=== PATIENT | male | born 1965 | race Caucasian/White ===

== ENCOUNTER 2018-03-02 21:29 | Inpatient (IN) | payer BC ==
[2018-03-02 21:38] VITALS: BMI 30.1
[2018-03-02] MEDS ORDERED: ONDANSETRON 4 MG/2 ML VIAL IVPB ONE (21:49)
[2018-03-02] MEDS ORDERED: SODIUM CHLORIDE 1,000 ML IV STA (21:49)
[2018-03-02] MEDS ORDERED: morphine CARPU-JECT 2 MG/1 ML DISP.SYRIN IVPUSH ONE (21:49)
[2018-03-02] MEDS ORDERED: MORPHINE SULFATE 2 MG/ML VIAL ONE (21:56)
[2018-03-02] MEDS ORDERED: ONDANSETRON 4 MG/2 ML VIAL ONE (21:57)
[2018-03-02 22:37] LABS: BASO % 0.3 % (0-2.0); EOS % 0.4 % (0-4.5); HEMATOCRIT 43.4 % (35.4-49); HEMOGLOBIN 14.9 GM/dL (11.7-16.9); LYMPH % 5.4 % (8-40); MCH 28.6 pg (25.7-33.7); MCHC 34.4 g/dl (32.0-35.9); MEAN CELL VOLUME 83.2 fl (80-96); MEAN PLT VOLUME 8.8 fl (7.5-11.1); MONO % 3.4 % (3.8-10.2); NEUT % 90.5 % (42.8-82.8); PLATELET COUNT 287 K/MM3 (134-434); RBC 5.22 M/mm3 (4.00-5.60); WHITE BLOOD COUNT 19.5 K/mm3 (4.0-10.0)
[2018-03-02] MEDS ORDERED: KETOROLAC TROMETHAMINE 30 MG/1 ML VIAL IVPUSH ONE (22:40)
--- NOTE | 2018-03-02 22:44 | PDOC ---
Attending Attestation - HPI HPI: 03/02/18 23:00 Patient is a 52 year old male with a significant past medical history of HLD, who presents to the ED with complaints of lower abdominal pain that began x2 days ago. Patient reports abdominal pain began 2 days ago but did not come in for evaluation because he attributed to gas. He reports beginning to experience left flank pain that he states is a 10/10 , that he states began to radiate to his left lower abdomen and right flank, prompting him to come into the ED for further evaluation. He reports experiencing associated symptom of intermittent vomiting, but currently states he is not nauseous. Patient states he believes the pain to be caused by a kidney stone. Denies chest pain, Sob. Denies fevers, chills. Denies contact with sick individuals, out of state travelling. Denies dysuria, hematuria. Denies diarrhea , constipation. Denies any other symptoms. Allergies: None Social history: No smoking. No alcohol. No illicit drugs. Surgical history: None PMD:Dr. Pascual <Mohsen Retana - Last Filed: 03/02/18 23:00> - Resident Resident Name: Danisha Garcia - ED Attending Attestation I have performed the following: I have examined & evaluated the patient, The case was reviewed & discussed with the resident, I agree w/resident's findings & plan, Exceptions are as noted - Physicial Exam PE: GENERAL: Awake, alert, and fully oriented. Appears uncomfortable. HEAD: No signs of trauma EYES: PERRLA, EOMI, sclera anicteric, conjunctiva clear ENT: Auricles normal inspection, hearing grossly normal, nares patent, oropharynx clear without exudates. Dry mucosa NECK: Normal ROM, supple, no lymphadenopathy, JVD, or masses LUNGS: Breath sounds equal, clear to auscultation bilaterally. No wheezes, and no crackles HEART: Regular rate and rhythm, normal S1 and S2, no murmurs, rubs or gallops ABDOMEN: Soft, nontender, normoactive bowel sounds. No guarding, no rebound. No masses EXTREMITIES: Normal range of motion, no edema. No clubbing or cyanosis. No cords, erythema, or tenderness NEUROLOGICAL: Cranial nerves II through XII grossly intact. Normal speech, normal gait SKIN: Warm, Dry, normal turgor, no rashes or lesions noted. - Medical Decision Making Suspected kidney stone, will obtain labs, urine, and spiral CT. 03/03/18 01:42 Pt with elevated lipase, significant leukocytosis in addition to the finding of kidney stone. Will plan for admission. <Adri Parker - Last Filed: 03/03/18 01:42>
--- NOTE | 2018-03-02 22:47 | PDOC ---
History of Present Illness - General Chief Complaint: Pain, Acute Stated Complaint: PAIN, ACUTE Time Seen by Provider: 03/02/18 21:39 History Source: Patient Exam Limitations: No Limitations - History of Present Illness Initial Comments: 03/02/18 22:42 Pt is a 52yo m with PMH of HLD presenting to ED because "I think I have a kidney stone". Pt said he had been having some lower abdominal pain for the past couple of days and attributed it to "gas". Today, 3-4 hours ago pt felt a sharp pain in his L flank that would radiate to his lower abdomen and go across to the R side as well. He rated the pain 10/10, intermittent and associated with N and vomiting. He also was diaphoretic during these episodes. He denies fever, chills, dysuria, hematuria, shortness of breath, chest pain, diarrhea, constipation. Pt has never had a kidney stone in the past. PCP: Dr. Pascual PMH: see hpi PSH: none Meds: statin Social: denies tobacco, alcohol, illicit drug use Allergies: nkda Past History - Past Medical History Allergies/Adverse Reactions: Allergies Allergy/AdvReac Type Severity Reaction Status Date / Time No Known Allergies Allergy Verified 03/02/18 21:37 Home Medications: Ambulatory Orders Atorvastatin Ca [Lipitor] 20 mg PO HS 03/02/18 COPD: No Hypercholesterolemia: Yes - Suicide/Smoking/Psychosocial Hx Smoking History: Never smoked Review of Systems - Review of Systems Constitutional: Yes: See HPI. No: Chills, Fever, Loss of Appetite, Weakness HEENTM: No: Recent change in vision, Double Vision Respiratory: No: Cough, Shortness of Breath Cardiac (ROS): No: Chest Pain, Lightheadedness, Palpitations ABD/GI: Yes: Nausea, Vomiting, Other (lower abdominal pain going from L to R). No: Blood Streaked Bowels, Constipated, Diarrhea : Yes: See HPI, Flank Pain (L flank pain). No: Burning, Dysuria, Hematuria Musculoskeletal: No: Back Pain, Joint Pain, Muscle Pain Neurological: No: Headache, Numbness, Paresthesia, Tingling, Weakness *Physical Exam - Vital Signs Last Vital Signs Temp Pulse Resp BP Pulse Ox 98.6 F 95 H 24 130/100 99 03/02/18 21:30 03/02/18 21:30 03/02/18 21:30 03/02/18 21:30 03/02/18 22:38 - Physical Exam Comments: 03/02/18 22:48 Pt was sitting in bed, looked very uncomfortable, writing in pain occasionally and clenching teeth General Appearance: Yes: Nourished, Appropriately Dressed, Severe Distress HEENT: positive: EOMI, LAILA, Hearing Grossly Normal. negative: Scleral Icterus (R), Scleral Icterus (L), Pharyngeal Erythema Neck: positive: Trachea midline, Supple. negative: Lymphadenopathy (R), Lymphadenopathy (L) Respiratory/Chest: positive: Lungs Clear, Normal Breath Sounds. negative: Crackles, Rales, Wheezing Cardiovascular: positive: Regular Rhythm, Regular Rate, S1, S2. negative: JVD, Murmur Vascular Pulses: Dorsalis-Pedis (R): 2+, Doralis-Pedis (L): 2+ Gastrointestinal/Abdominal: positive: Normal Bowel Sounds. negative: Distended , Guarding, Rebound, Tenderness, Hernia Musculoskeletal: negative: CVA Tenderness, CVA Tenderness (R), CVA Tenderness (L ), Muscle Spasm Extremity: positive: Normal Capillary Refill, Normal Inspection Integumentary: positive: Normal Color, Dry, Warm Neurologic: positive: informatics manager II-XII NML intact, Fully Oriented, Alert, Normal Mood/ Affect, Normal Response, Motor Strength 5/5 ED Treatment Course - LABORATORY CBC & Chemistry Diagram: 03/02/18 22:10 03/02/18 22:10 - ADDITIONAL ORDERS Additional order review: 03/02/18 22:10 RBC 5.22 MCV 83.2 MCHC 34.4 RDW 14.0 MPV 8.8 Neutrophils % 90.5 H Lymphocytes % 5.4 L Monocytes % 3.4 L Eosinophils % 0.4 Basophils % 0.3 - RADIOLOGY Radiology Studies Ordered: Category Date Time Status SPIRAL- RENAL-STONE CT [CT] Stat CT Scan 03/02/18 21:50 Ordered - Medications Given in the ED: ED Medications Discontinued Medications Generic Name Dose Route Start Last Admin Trade Name Freq PRN Reason Stop Dose Admin Ketorolac Tromethamine 30 mg 03/02/18 22:40 03/02/18 22:41 Toradol Injection - IVPUSH 03/02/18 22:41 30 mg ONCE ONE Administration Morphine Sulfate 2 mg 03/02/18 21:49 03/02/18 22:00 Morphine Injection - IVPUSH 03/02/18 21:50 2 mg ONCE ONE Administration Ondansetron HCl 4 mg 03/02/18 21:49 03/02/18 22:00 Zofran Injection IVPB 03/02/18 21:50 4 mg ONCE ONE Administration Medical Decision Making - Medical Decision Making 03/02/18 22:49 Pt is a 52yo m with PMH of HLD presenting to ED because "I think I have a kidney stone". DDx: nephrolithiasis, pyelonephritis, colitis, pancreatitis, cholecystits, Clinical gestalt highly suspicious for nephrolithiasis. CBC, CMP, Lipase, spiral CT ordered. Pt given Zofran, morphine, toradol and NS. Will await CT results and UA. Lipase: 898 WBC: 19.[address]: showed 3.3mm distal left ureteral stone at the left ureterovesicular junction which is obstructing and causing mild left hydronephrosis/hydroureter. No R stone or obstruction. No bowel obstruction or inflammation. NOrmal appendix. NOrmal pancreas. No obvious gallbladder abnormalities. Normal spleen UA negative. No source for elevated WBC or Lipase. Will admit pt under observation to trend enzymes and WBC. 03/03/18 03:[address] Ford, advised to order blood cultures and give dose of rocephin. make pt npo Will admit pt under Dr. Ramirez. Ordered triglycerides, lactate and pt/aptt. 03/03/18 03:38 *DC/Admit/Observation/Transfer Diagnosis at time of Disposition: Ureteral stone - Discharge Dispostion Decision to Admit order: Yes - Referrals Referrals: Ankur Pascual [Primary Care Provider] - - Patient Instructions - Post Discharge Activity
[2018-03-02] MEDS ORDERED: KETOROLAC TROMETHAMINE 30 MG/1 ML VIAL ONE (23:03)
[2018-03-02 23:12] LABS: ALBUMIN 4.4 g/dl (3.4-5.0); ANION GAP 10 MMOL/L (8-16); BLOOD UREA NITROGEN 16 mg/dL (7-18); CALCIUM 8.8 mg/dL (8.5-10.1); CHLORIDE 103 mmol/L (98-107); CO2 29 mmol/L (21-32); GLUCOSE,RANDOM 143 mg/dL (74-106); POTASSIUM 4.2 mmol/L (3.5-5.1); SODIUM 142 mmol/L (136-145)
[2018-03-02 23:15] LABS: ALK PHOS 66 U/L (45-117); BILIRUBIN,TOTAL 0.4 mg/dL (0.2-1.0); CREATININE 1.5 mg/dL (0.7-1.3); LIPASE 898 U/L (73-393); SGOT/AST 24 U/L (15-37); SGPT/ALT 36 U/L (12-78); TOT PROT 7.5 g/dl (6.4-8.2)
[2018-03-03 02:22] LABS: URINE APPEARANCE CLEAR; URINE BILIRUBIN NEGATIVE (<2.0 mg/dL); URINE COLOR LTYELLOW; URINE GLUCOSE (UA) NEGATIVE (NEGATIVE); URINE KETONE NEGATIVE (NEGATIVE); URINE LEUK ESTERASE NEGATIVE (NEGATIVE); URINE NITRITE NEGATIVE (NEGATIVE); URINE PROTEIN NEGATIVE (NEGATIVE); URINE UROBILINOGEN NEGATIVE mg/dL (0.2-1.0)
[2018-03-03 02:27] LABS: URINE MUCUS RARE
[2018-03-03] MEDS ORDERED: CEFTRIAXONE 1 GM in DEXTROSE 5%-WATER - 100 ML IVPB ONE (03:08)
[2018-03-03] MEDS ORDERED: KETOROLAC TROMETHAMINE 15 MG/ML VIAL IVPUSH PRN (03:32)
[2018-03-03] MEDS ORDERED: CEFTRIAXONE 1 GM/50 ML BAG ONE (03:34)
--- NOTE | 2018-03-03 03:35 | HP ---
CHIEF COMPLAINT: back pain radiating to the groin PCP: Dov Davis HISTORY OF PRESENT ILLNESS: 52 yr old man with hx of HLD, presents with squeezing continous back pain radiating to the groin, worse on the left side, starting around 530pm while at work. Around 7pm it became intolerable /10 with associated nausea and vomiting. No hx of previous kidney stones, or pancreatitis. denies fevers, dysuria, chest pain, sob, constipation. ER course was notable for: (1)urology consult (2) (3) Recent Travel: none PAST MEDICAL HISTORY: HLD, hx of hypertriglycerides - stops his statin and the trigs decr and then he goes back on his statin PAST SURGICAL HISTORY: denies Social History: Smoking: never Alcohol:never Drugs: never Family History: father at age 58 due to lung cancer(chronic smoker), mother in jul 2017 due to complications of COPD(was a chronic smoker) Allergies No Known Allergies Allergy (Verified 03/02/18 21:37) HOME MEDICATIONS: Home Medications Medication Instructions Recorded Atorvastatin Ca [Lipitor] 20 mg PO HS 03/02/18 REVIEW OF SYSTEMS CONSTITUTIONAL: Absent: fever, chills, diaphoresis, generalized weakness, malaise, loss of appetite, weight change HEENT: Absent: rhinorrhea, nasal congestion, throat pain, throat swelling, difficulty swallowing, mouth swelling, ear pain, eye pain, visual changes CARDIOVASCULAR: Absent: chest pain, syncope, palpitations, irregular heart rate, lightheadedness , peripheral edema RESPIRATORY: Absent: cough, shortness of breath, dyspnea with exertion, orthopnea, wheezing, stridor, hemoptysis GASTROINTESTINAL: Absent: abdominal pain, abdominal distension, nausea, vomiting, diarrhea, constipation, melena, hematochezia GENITOURINARY: Absent: dysuria, frequency, urgency, hesitancy, hematuria, flank pain, genital pain MUSCULOSKELETAL: Absent: myalgia, arthralgia, joint swelling, back pain, neck pain SKIN: Absent: rash, itching, pallor HEMATOLOGIC/IMMUNOLOGIC: Absent: easy bleeding, easy bruising, lymphadenopathy, frequent infections ENDOCRINE: Absent: unexplained weight gain, unexplained weight loss, heat intolerance, cold intolerance NEUROLOGIC: Absent: headache, focal weakness or paresthesias, dizziness, unsteady gait, seizure, mental status changes, bladder or bowel incontinence PSYCHIATRIC: Absent: anxiety, depression, suicidal or homicidal ideation, hallucinations. PHYSICAL EXAMINATION Vital Signs - 24 hr 03/02/18 03/02/18 03/03/18 21:30 22:38 02:37 Temperature 98.6 F 99.1 F Pulse Rate 95 H Pulse Rate [ 92 H Apical] Respiratory 24 19 Rate Blood Pressure 130/100 Blood Pressure 134/87 [Left Arm] O2 Sat by Pulse 99 99 Oximetry (%) GENERAL: Awake, alert, and fully oriented, in no acute distress. HEAD: Normal with no signs of trauma. EYES: Pupils equal, round and reactive to light, extraocular movements intact, sclera anicteric, conjunctiva clear. No lid lag. EARS, NOSE, THROAT: Ears normal, nares patent, oropharynx clear without exudates. Moist mucous membranes. NECK: Normal range of motion, supple without lymphadenopathy, JVD, or masses. LUNGS: Breath sounds equal, clear to auscultation bilaterally. No wheezes, and no crackles. No accessory muscle use. HEART: Regular rate and rhythm, normal S1 and S2 without murmur, rub or gallop. ABDOMEN: Soft, nontender, not distended, normoactive bowel sounds, no guarding, no rebound, no masses. No hepatomegaly or splenomegaly. MUSCULOSKELETAL: Normal range of motion at all joints. No bony deformities or tenderness. No CVA tenderness. UPPER EXTREMITIES: 2+ radial pulses, warm, well-perfused. No cyanosis. No clubbing. No peripheral edema. LOWER EXTREMITIES: 2+ DP pulses, warm, well-perfused. No calf tenderness. No peripheral edema. NEUROLOGICAL: Cranial nerves II-XII intact. Normal speech. PSYCHIATRIC: Cooperative. Good eye contact. Appropriate mood and affect. SKIN: Warm, dry, normal turgor, no rashes or lesions noted, normal capillary refill. Laboratory Results - last 24 hr 03/02/18 03/02/18 03/02/18 22:10 22:10 22:10 WBC 19.5 H RBC 5.22 Hgb 14.9 Hct 43.4 MCV 83.2 MCH 28.6 MCHC 34.4 RDW 14.0 Plt Count 287 MPV 8.8 Absolute Neuts (auto) 17.6 H Neutrophils % 90.5 H Lymphocytes % 5.4 L Monocytes % 3.4 L Eosinophils % 0.4 Basophils % 0.3 Nucleated RBC % 0 Sodium 142 Potassium 4.2 Chloride 103 Carbon Dioxide 29 Anion Gap 10 BUN 16 Creatinine 1.5 H Creat Clearance w eGFR 49.34 Random Glucose 143 H Calcium 8.8 Total Bilirubin 0.4 AST 24 ALT 36 Alkaline Phosphatase 66 Troponin I < 0.02 Total Protein 7.5 Albumin 4.4 Lipase 898 H Urine Color Urine Appearance Urine pH Ur Specific Rosman Urine Protein Urine Glucose (UA) Urine Ketones Urine Blood Urine Nitrite Urine Bilirubin Urine Urobilinogen Ur Leukocyte Esterase Urine WBC (Auto) Urine RBC (Auto) Urine Mucus 03/03/18 01:57 WBC RBC Hgb Hct MCV MCH MCHC RDW Plt Count MPV Absolute Neuts (auto) Neutrophils % Lymphocytes % Monocytes % Eosinophils % Basophils % Nucleated RBC % Sodium Potassium Chloride Carbon Dioxide Anion Gap BUN Creatinine Creat Clearance w eGFR Random Glucose Calcium Total Bilirubin AST ALT Alkaline Phosphatase Troponin I Total Protein Albumin Lipase Urine Color Ltyellow Urine Appearance Clear Urine pH 6.0 Ur Specific Rosman 1.011 Urine Protein Negative Urine Glucose (UA) Negative Urine Ketones Negative Urine Blood 3+ H Urine Nitrite Negative Urine Bilirubin Negative Urine Urobilinogen Negative Ur Leukocyte Esterase Negative Urine WBC (Auto) 1 Urine RBC (Auto) 23 Urine Mucus Rare ASSESSMENT/PLAN: 52 yr old man with cva tenderness admitted for obstructing stone. #nephrolithiasis/ MENDOZA - flomax 0.4mg po - urology consulted, dr. Cardoza to evaluate in the pt in the AM, started on rocephin - IVF NS @125cc/hr - pain control with toradol - repeat labs in the AM - will need further nephrology evaluation for renal stone analysis and elevated cr as outpatient #elevated lipase - unclear etiology, pt does not c/o of abdominal pain, no radiographic findings on prelim report of pancreatitis - await final report - repeat lipase to trend if any symptoms develop, if stable during inpatient, f/ u with pcp to discuss further investigation #Diet: NPO pending urology evaluation #DVT: heparin TID Visit type - Emergency Visit Emergency Visit: Yes ED Registration Date: 03/03/18 Care time: The patient presented to the Emergency Department on the above date and was hospitalized for further evaluation of their emergent condition. - New Patient This patient is new to me today: Yes Date on this admission: 03/03/18 - Critical Care Critical Care patient: No Hospitalist Screening - Colonoscopy Questionnaire Colonoscopy Questionnaire: Colonoscopy Questionnaire - Patient: 50 - 75 years old and never had a screening colonoscopy: Yes History of colon or rectal polyps, or CA: No History of IBD, Crohn's disease or UC: No History of abdominal radiation therapy as a child: No - Relative: 1 with colon or rectal CA, or polyps at age 60 or younger: No Colon or rectal CA diagnosed at age 45 or younger: No Multiple relatives with colon or rectal CA: No - Outcome: Screening Result: Positive Screen
[2018-03-03] MEDS ORDERED: SODIUM CHLORIDE 1,000 ML IV SCH (03:45)
[2018-03-03 03:58] LABS: INR 1.03 (0.83-1.09); PROTHROMBIN TIME (PATIENT) 11.6 SEC (9.7-13.0)
[2018-03-03 04:00] LABS: ACTIVATED PTT 27.2 SECONDS (25.2-36.5)
--- NOTE | 2018-03-03 04:55 | PN ---
Teaching Attending Note Name of Resident: Leann Lee ATTENDING PHYSICIAN STATEMENT I saw and evaluated the patient. I reviewed the resident's note and discussed the case with the resident. I agree with the resident's findings and plan as documented. SUBJECTIVE: Patient is a 52 year old man with a significant past medical history of HLD, who presents to the ER with complaints of lower abdominal pain that began x2 days ago. Patient reports abdominal pain began 2 days ago but did not come in for evaluation because he attributed to gas. He reports beginning to experience left flank pain that he states is a 10/10 , that he states began to radiate to his left lower abdomen and right flank, prompting him to come into the ED for further evaluation. He reports experiencing associated symptom of intermittent vomiting, but currently states he is not nauseous. Patient states he believes the pain to be caused by a kidney stone. OBJECTIVE: Alert Vital Signs Period Temp Pulse Resp BP Sys/Hyatt Pulse Ox Last 24 Hr 98.6 F-99.1 F 92-95 19-24 130-134/87-100 99-99 HEENT: No Jaundice, eye redness or discharge, PERRLA, EOMI. Normocephalic, atraumatic. External ears are normal and hearing is grossly intact. No nasal discharge. Neck: Supple, nontender. No palpable adenopathy or thyromegaly. No JVD Chest: Good effort. Clear to auscultation and percussion. Heart: Regular. No S3, rub or murmur Abdomen: Not distended, soft, LUQ tenderness and no HSM. No rebound or guarding. Normoactive bowel sounds. Ext: Peripheral pulses intact. No leg edema. Skin: Warm and dry. No petechiae, rash or ecchymosis. Neuro: Alert. Oriented x3. CN 2-12 grossly intact. Sensation grossly intact in all four extremities and DTR are symmetric. Current Medications Generic Name Dose Route Start Last Admin Trade Name Freq PRN Reason Stop Dose Admin Heparin Sodium (Porcine) 5,000 unit 03/03/18 06:00 Heparin - SQ TID [facility] Sodium Chloride 1,000 mls @ 125 mls/hr 03/03/18 03:45 03/03/18 04:00 Normal Saline - IV 125 mls/hr ASDIR DEVAN Administration Ketorolac Tromethamine 15 mg 03/03/18 03:32 Toradol Injection - IVPUSH Q6H PRN PAIN LEVEL 7 - 10 Home Medications Medication Instructions Recorded Atorvastatin Ca [Lipitor] 20 mg PO HS 03/02/18 Abnormal Lab Results 03/02/18 03/02/18 03/02/18 22:10 22:10 22:10 WBC 19.5 H Absolute Neuts (auto) 17.6 H Neutrophils % 90.5 H Lymphocytes % 5.4 L Monocytes % 3.4 L Creatinine 1.5 H Random Glucose 143 H Triglycerides Lipase 898 H Urine Blood 03/03/18 03/03/18 01:57 03:30 WBC Absolute Neuts (auto) Neutrophils % Lymphocytes % Monocytes % Creatinine Random Glucose Triglycerides 346 H Lipase Urine Blood 3+ H ASSESSMENT AND PLAN: 1. Kidney Stone Disease - Has a left obstructing kidney stone with hydronephrosis. Will treat with IV fluids, toradol and flomax. Will be evaluated by Urology for possible stenting. Elevated lipase will be monitored and high TG will be treated with fenofibrate. No evidence of pancreatitis. Refer to nephrology to search for risk factor for stone disease. 2. MENDOZA - Possibly due to volume depletion from vomiting and poor intake. Hydrate and avoid nephrotoxic agents such as NSAIDS, aminoglycosides, contrast dyes and certain Alternative medicine products. 3. DVT prophylaxis - Heparin 5000u sq tid. 4. Advance directives - Full code
[2018-03-03] MEDS ORDERED: HEPARIN NA (PORCINE) 5,000 UNITS/ML 1ML VIAL ONE (06:32)
[2018-03-03] MEDS: HEPARIN NA (PORCINE) 5,000 UNITS/ML 1ML VIAL SQ SCH ×2 (06:41→21:28)
[2018-03-03] MEDS ORDERED: TAMSULOSIN HCL 0.4 MG CAP.ER.24H (FP) PO SCH (08:30)
[2018-03-03] MEDS ORDERED: MORPHINE SULFATE 2 MG/ML VIAL IVPUSH PRN (09:29)
[2018-03-03] MEDS ORDERED: MORPHINE SULFATE 2 MG/ML VIAL ONE (10:00)
[2018-03-03 11:12] LABS: BASO % 0.3 % (0-2.0); EOS % 1.2 % (0-4.5); HEMATOCRIT 43.1 % (35.4-49); HEMOGLOBIN 14.5 GM/dL (11.7-16.9); LYMPH % 9.6 % (8-40); MCH 28.3 pg (25.7-33.7); MCHC 33.7 g/dl (32.0-35.9); MEAN PLT VOLUME 8.5 fl (7.5-11.1); MONO % 6.1 % (3.8-10.2); NEUT % 82.8 % (42.8-82.8); PLATELET COUNT 243 K/MM3 (134-434); RBC 5.13 M/mm3 (4.00-5.60); RDW 13.7 % (11.9-15.9); WHITE BLOOD COUNT 13.6 K/mm3 (4.0-10.0)
[2018-03-03 11:54] LABS: ANION GAP 9 MMOL/L (8-16); BLOOD UREA NITROGEN 13 mg/dL (7-18); CALCIUM 8.6 mg/dL (8.5-10.1); CHLORIDE 108 mmol/L (98-107); CO2 26 mmol/L (21-32); CREATININE 1.1 mg/dL (0.7-1.3); GLUCOSE,RANDOM 88 mg/dL (74-106); POTASSIUM 3.9 mmol/L (3.5-5.1); SODIUM 143 mmol/L (136-145)
[2018-03-03] MEDS ORDERED: fentaNYL CITRATE 250 MCG/5 ML VIAL ONE (13:54)
[2018-03-03] MEDS ORDERED: MIDAZOLAM HCL 2 MG/2 ML SINGLE DOSE VIAL ONE (13:55)
[2018-03-03] MEDS ORDERED: PROPOFOL 20 ML ONE ×2 (13:55)
[2018-03-03] MEDS ORDERED: ceFAZolin SODIUM 1 GM VIAL ONE (14:11)
[2018-03-03] MEDS ORDERED: ceFAZolin SODIUM 1 GM VIAL IVPB ONE ×2 (14:14→14:38)
[2018-03-03] MEDS ORDERED: DEXAMETHASONE SOD PHOSPHATE 4 MG/1 ML VIAL ONE (14:21)
--- NOTE | 2018-03-03 14:39 | OP ---
Operative Note - Note: Operative Date: 03/03/18 Pre-Operative Diagnosis: LDU stone Operation: cysto/retrograde/left ureteroscopy/laser litho/stent Findings: impacted LDU with stricture Post-Operative Diagnosis: Same as Pre-op Surgeon: Nicholas Ford Anesthesia: General Specimens Removed: stone Estimated Blood Loss (mls): 2
[2018-03-03] MEDS ORDERED: ONDANSETRON 4 MG/2 ML VIAL IVPUSH PRN (14:59)
[2018-03-03] MEDS ORDERED: CEFTRIAXONE 1 GM in DEXTROSE 5%-WATER - 50 ML IVPB SCH (15:00)
[2018-03-03] MEDS: SODIUM CHLORIDE 1,000 ML IV SCH (16:00)
[2018-03-03] MEDS: MORPHINE SULFATE 2 MG/ML VIAL IVPUSH PRN (18:50)
[2018-03-04] MEDS: SODIUM CHLORIDE 1,000 ML IV SCH ×2 (02:28→11:42)
[2018-03-04] MEDS: HEPARIN NA (PORCINE) 5,000 UNITS/ML 1ML VIAL SQ SCH ×2 (06:31→09:18)
[2018-03-04 08:06] LABS: ANION GAP 8 MMOL/L (8-16); BLOOD UREA NITROGEN 11 mg/dL (7-18); CHLORIDE 111 mmol/L (98-107); CO2 26 mmol/L (21-32); GLUCOSE,RANDOM 93 mg/dL (74-106); POTASSIUM 4.3 mmol/L (3.5-5.1); SODIUM 145 mmol/L (136-145)
--- NOTE | 2018-03-04 08:23 | OP ---
DATE OF OPERATION: DATE OF DICTATION: 03/04/2018 PREOPERATIVE DIAGNOSIS: Obstructing stone, left distal ureter. POSTOPERATIVE DIAGNOSIS: Obstructing stone, left distal ureter, plus left distal ureteral stricture. PROCEDURE: Cystoscopy, left ureteroscopy, laser lithotripsy, stone basketing, stent placement. SURGEON: Dominic Trimble MD INDICATIONS: Patient is a 52-year-old male admitted with obstructing left distal ureteral stone and elevated white blood cell count. In light of these findings, he was taken to the OR for ureteroscopy and laser lithotripsy of the stone. DESCRIPTION OF PROCEDURE: The patient was taken to the OR, placed supine on the operating table. With cardiac monitoring administered and general anesthesia established, he was prepped and draped in dorsal lithotomy position. The cystoscope was inserted into the urethra without difficulty. The anterior urethra was normal, prostatic urethra was 3 cm and nonocclusive. The bladder was visualized. No tumors or stones noted in the bladder. Attention at this point was then turned to the left ureteral orifice. This was intubated with the ureteral catheter and contrast was injected for a retrograde pyelogram. There was significant hydronephrosis down to the level of the distal ureter. A guidewire was advanced up into the left renal pelvis. Alongside the guidewire, a rigid ureteroscope was advanced into the distal ureter, and there was a stone approximately 4 mm in size seen, impacted in the distal ureter, impacted into a wall of the distal ureter, and there was consequent stricture around the stone, as well. Using the 365 micron laser fiber, the stone was pulverized to fine dust of 1- to 2-mm fragments. These fragments were removed with the stone basket and sent to Pathology for analysis. The scope was then advanced beyond the area of stricture, and no other stone was noted. Scope was advanced to the level of the mid ureter. Ureteroscope was then removed, and a 7-Monegasque 24-cm double pigtail stent was then advanced in a monorail fashion. Fluoroscopy confirmed this stent to be in good position. Patient was awoken from anesthesia and transferred to the recovery room in stable condition. There were no complications. ESTIMATED BLOOD LOSS: Minimal. PLAN: Keep the stent for an extended period of time due to the presence of stricture. DOMINIC TRIMBLE M.D. [id number]
[2018-03-04] MEDS ORDERED: TAMSULOSIN HCL 0.4 MG CAP.ER.24H (FP) PO SCH (08:30)
[2018-03-04] MEDS ORDERED: DEXTROSE 5%-WATER - 50 ML IVPB ONE (09:12)
[2018-03-04] MEDS ORDERED: cefTRIAXone SODIUM 1 GM VIAL ONE (09:12)
[2018-03-04] MEDS ORDERED: CEFTRIAXONE 1 GM in DEXTROSE 5%-WATER - 50 ML IVPB SCH (10:00)
[2018-03-04 10:44] VITALS: BP 136/82; PULSE 89; TEMP 98.3
[2018-03-04] MEDS: MORPHINE SULFATE 2 MG/ML VIAL IVPUSH PRN (11:39)
--- NOTE | 2018-03-04 12:20 | PN ---
Progress Note, Physician Chief Complaint: day #1 s/p cysto/laser/stent - Current Medication List Current Medications: Active Medications Heparin Sodium (Porcine) (Heparin -) 5,000 unit SQ TID [facility] Last Admin: 03/04/18 06:31 Dose: 5,000 unit Ceftriaxone Sodium 1 gm/ (Dextrose) 50 mls @ 100 mls/hr IVPB DAILY [facility]; Protocol Last Admin: 03/04/18 09:18 Dose: 100 mls/hr Sodium Chloride (Normal Saline -) 1,000 mls @ 125 mls/hr IV ASDIR [facility] Last Admin: 03/04/18 11:42 Dose: 125 mls/hr Morphine Sulfate (Morphine Sulfate) 2 mg IVPUSH Q4H PRN PRN Reason: PAIN LEVEL 1-5 Last Admin: 03/04/18 11:39 Dose: 2 mg Tamsulosin HCl (Flomax -) 0.4 mg PO DAILY@0830 [facility] Last Admin: 03/04/18 09:17 Dose: 0.4 mg - Objective Vital Signs: Vital Signs Temperature 98.3 F 03/04/18 09:00 Pulse Rate 89 03/04/18 09:00 Respiratory Rate 18 03/04/18 09:00 Blood Pressure 136/82 03/04/18 09:00 O2 Sat by Pulse Oximetry (%) 95 03/03/18 21:00 Labs: CBC, BMP 03/03/18 10:50 03/04/18 06:00 INR, PTT INR 1.03 (0.83-1.09) 03/03/18 03:30 Assessment/Plan doing well s/p GA for surgery. No anesthetic issues/complications
--- NOTE | 2018-03-04 12:21 | PN ---
Progress Note (short form) - Note Progress Note: s/p left ureteroscopy/laser litho/stent yesterday pain much improved WBC normal may d/c home today with analgesics and antbiotics outpt f/u in 2 weeks for stent removal
--- NOTE | 2018-03-04 12:26 | DS ---
Physical Exam: SUBJECTIVE: Patient seen and examined at the bedside. Feels well. in no acute distress. Urinating without difficulty. wants to go home. OBJECTIVE: Vital Signs Period Temp Pulse Resp BP Sys/Hyatt Pulse Ox Last 24 Hr 97.0 F-98.5 F 78-97 14-20 112-139/63-91 95-100 PHYSICAL EXAM GENERAL: The patient is awake, alert, and fully oriented, in no acute distress. HEAD: Normal with no signs of trauma. EYES: PERRL, extraocular movements intact, sclera anicteric, conjunctiva clear. ENT: Ears normal, nares patent, oropharynx clear without exudates, moist mucous membranes. NECK: Trachea midline, full range of motion, supple. LUNGS: Breath sounds equal, clear to auscultation bilaterally, no wheezes, no crackles, no accessory muscle use. HEART: Regular rate and rhythm ABDOMEN: Soft, nontender, nondistended, normoactive bowel sounds, no guarding, no rebound, no hepatosplenomegaly, no masses. EXTREMITIES: 2+ pulses, warm, well-perfused, no edema. NEUROLOGICAL: Normal speech, gait not observed. PSYCH: Normal mood, normal affect. SKIN: Warm, dry, normal turgor, no rashes or lesions noted. LABS Laboratory Results - last 24 hr 03/03/18 03/03/18 03/04/18 10:50 19:30 06:00 Sodium 145 Potassium 4.3 Chloride 111 H Carbon Dioxide 26 Anion Gap 8 BUN 11 Creatinine 1.0 Creat Clearance w eGFR > 60 Random Glucose 93 Calcium 8.0 L Blood Type B POSITIVE B POSITIVE Antibody Screen Negative HOSPITAL COURSE: Date of Admission:03/03/18 Date of Discharge: 03/04/18 Patient is a 52 year old male with a significant past medical history of hyperlipidemia who comes to the ED on 03/03/2018 with squeezing continuous back pain radiating to the groin, worse on the left side with associated nausea and vomiting. No history of previous kidney stones or pancreatitis. abdomen ct/ap shows distal ureteral stone in the left causing proximal hydronephrosis. Patient is s/p left ureteroscopy/laser litho and stent placement on 03/03/2018. His pain is improved, WBC improving. Patient cleared for discharge by urology with analgesics and follow up appt in 2 weeks for stent removal. discharge home with follow up with urology in 2 weeks, patient in agreement. discharged with cipro 500mg BID x 7 days and toradol prn for pain. Minutes to complete discharge: 45 Discharge Summary Reason For Visit: CALCULUS OF LEFT URETER Current Active Problems Ureteral stone (Acute) Condition: Improved - Instructions Diet, Activity, Other Instructions: Mr. Graves: You had a left ureteroscopy, later and stent treatment with Dr. Cardoza. Please continue the Cipro 500mg antibiotics twice per day for 7 more days. Please follow up with Dr. Cardoza in 2 weeks for stent removal. Please call with any questions that you may have. Referrals: Nicholas Parrish MD [Staff Physician] - 1 Week (renal stone evaluation) Nicholas Ford MD [Staff Physician] - Ankur Pascual [Primary Care Provider] - Disposition: HOME - Home Medications Comprehensive Discharge Medication List: Ambulatory Orders Atorvastatin Ca [Lipitor] 20 mg PO HS 03/02/18 This patient is new to me today: Yes Date on this admission: 03/04/18 Emergency Visit: Yes ED Registration Date: 03/03/18 Care time: The patient presented to the Emergency Department on the above date and was hospitalized for further evaluation of their emergent condition. Critical Care patient: No - Discharge Referral Referred to [facility] No
--- NOTE | 2018-03-04 19:09 | EKG ---
Test Reason : Blood Pressure : / mmHG Vent. Rate : 100 BPM Atrial Rate : 100 BPM P-R Int : 144 ms QRS Dur : 088 ms QT Int : 358 ms P-R-T Axes : 035 -05 008 degrees QTc Int : 461 ms NORMAL SINUS RHYTHM NORMAL ECG NO PREVIOUS ECGS AVAILABLE Confirmed by INDIGO BACON MD ([id number]) on 03/04/2018 7:09:09 PM Referred By: Confirmed By:INDIGO BACON MD
--- NOTE | 2018-03-07 18:07 | PATH ---
Surgical Pathology Report Patient Name: SANCHEZ CHOUDHARY [facility]. Rec. #: [id number] /Age/Gender: 1965 (Age: 52) / M Account: [id number] Location: [address] [place] [address]/[facility] Taken: 03/03/2018 Received: 03/06/2018 Reported: 03/07/2018 Physicians: Travis Sanchez Specimen(s) Received LEFT URETERAL STONE Clinical History Calculus left ureter Final Diagnosis LEFT URETERAL STONE, REMOVAL: CALCULUS, SENT FOR CHEMICAL ANALYSIS. Electronically Signed Esteban Garcia M.D. Gross Description Received fresh labeled "left ureteral stone," is a 0.3 cm in greatest dimension davis-palmer, irregular calculus which is sent for chemical analysis. /03/06/2018 [facility]/03/06/2018
[2018-03-14 14:12] LABS: CA OXALATE MONOHYDR. 80 % (.)
== END 2018-03-04 13:07 | disposition home or self-care (01) | DRG 669 ==
LOC: JER 21:29 → JERBED 03-03 03:34 → J5S 03-03 16:00
PROVIDERS: ADMIT Internal Medicine; ATTEND Nurse Practitioner Family
PROC: 0TC78ZZ Extirpation of Matter from Left Ureter, Via Natural or Artificial Opening Endoscopic (ICD-10-PCS; principal; 2018-03-03 13:00)
PROC: 0T778DZ Dilation of Left Ureter with Intraluminal Device, Via Natural or Artificial Opening Endoscopic (ICD-10-PCS; 2018-03-03 13:00)
PROC: 0TJ98ZZ Inspection of Ureter, Via Natural or Artificial Opening Endoscopic (ICD-10-PCS; 2018-03-03 13:00)
PROC: BT1BYZZ Fluoroscopy of Bladder and Urethra using Other Contrast (ICD-10-PCS; 2018-03-03 13:00)
DX: N13.2 Hydronephrosis with renal and ureteral calculous obstruction (principal); N17.9 Acute kidney failure, unspecified; E78.5 Hyperlipidemia, unspecified; N13.1 Hydronephrosis with ureteral stricture, not elsewhere classified
CPT/HCPCS: 36415; 74176; 76000-TC-FY; 80048; 80053; 81003; 81015; 82360; 83036; 83605; 83690; 84478; 84484; 85025; 85610; 85730; 86850; 86900; 86901; 87040; 87086; 88300-TC; 93005; 93010; 94760; 99284-25; J1644; J7030